=== PATIENT | female | born 1960 | race Caucasian/White ===

== ENCOUNTER 2017-02-19 14:52 | Emergency (ER) | payer OTHER ==
[~2017-02-19] VITALS: Ht 175.3 cm; Wt 147.1 kg
[~2017-02-19 14:52] MED LIST: ALLEGRA-D 121 TABLET PO; ASCORBIC ACID500 M1 PO; FOLIC ACID0.8 MG PO; HUMIRA20 MG/0.4 SC; LEVAQUIN750 MG PO; LIDODERM 5% P1 PATCH TD; METHOTREXATE2.5 MG PO; ONE DAILY WOME1 EACH PO; PERCOCET 5/31 TABLET PO; PRAVACHOL10 MG PO; RANITIDINE HCL150 MG PO; SIMVASTATIN40 MG PO; TAMSULOSIN HCL0.4 MG PO; XELJANZ5 MG PO; ZOFRAN8 MG PO
[2017-02-19 17:32] VITALS: BP 181/95
== END 2017-02-19 17:32 | disposition home or self-care (01) ==
LOC: EME 14:52
DX: M79.662 Pain in left lower leg (principal); R60.0 Localized edema; Z86.718 Personal history of other venous thrombosis and embolism; Z79.52 Long term (current) use of systemic steroids; F17.200 Nicotine dependence, unspecified, uncomplicated
CPT/HCPCS: 93971; 99281; 99283